=== PATIENT | male | born 1975 | race Caucasian/White ===

== ENCOUNTER 2021-08-03 06:17 | Day surgery (SDC) | payer BC ==
[~2021-08-03] VITALS: Ht 175.3 cm; Wt 99.9 kg
[2021-08-03 06:54] VITALS: BP 150/84
[2021-08-03] MEDS ORDERED: LIDOCAINE/PF 1%, 30ML ONE (06:54)
[2021-08-03] MEDS ORDERED: EPINEPHRINE TOPICAL SOLN 1 MG/ML, 30ML ONE (06:54)
[2021-08-03] MEDS ORDERED: FLUORESCEIN SODIUM 500 MG/5 ML ONE (06:55)
[2021-08-03] MEDS ORDERED: BACITRACIN OINT 500U/GM, 15 GM ONE (06:55)
[2021-08-03] MEDS ORDERED: EPINEPHRINE 1 MG/ML, 1ML ONE (06:55)
[2021-08-03] MEDS ORDERED: OXYMETAZOLINE NASAL SPRAY 0.05%,30ML ONE (06:55)
[2021-08-03] MEDS ORDERED: LACTATED RINGERS 1,000 ML IV SCH (07:00)
[2021-08-03] MEDS ORDERED: CHLORHEXIDINE 15 ML UDC PO ONE (07:00)
[2021-08-03] MEDS ORDERED: GLUC1TAB21 PO (07:12)
[2021-08-03] MEDS ORDERED: MULT-826 PO (07:12)
[2021-08-03] MEDS ORDERED: FENTANYL PF 250 MCG/5ML ONE (08:06)
[2021-08-03] MEDS ORDERED: MIDAZOLAM 1 MG/ML, 2ML ONE (08:06)
[2021-08-03] MEDS ORDERED: ROCURONIUM 10 MG/ML,10ML ONE (09:03)
[2021-08-03] MEDS ORDERED: SUGAMMADEX 200 MG/2 ML IVPush ONE (09:03)
[2021-08-03] MEDS ORDERED: DEXAMETHASONE 4 MG/ML, 1ML ONE (09:03)
[2021-08-03] MEDS ORDERED: PROPOFOL 10 MG/ML, 20ML ONE (09:03)
[2021-08-03] MEDS ORDERED: ONDANSETRON 2MG/ML, 2ML ONE (09:03)
[2021-08-03] MEDS ORDERED: CEFAZOLIN 1,000 MG ONE (09:03)
[2021-08-03] MEDS ORDERED: SUCCINYLCHOLINE 20 MG/ML, 10ML ONE (09:03)
[2021-08-03] MEDS ORDERED: OXYcodone 5 MG/5 ML ORAL.SOL UDC PO PRN (10:30)
[2021-08-03] MEDS ORDERED: ALBUTEROL SULFATE 2.5 MG/3 ML NPPB PRN (10:30)
[2021-08-03] MEDS ORDERED: ONDANSETRON 2MG/ML, 2ML IVPush PRN (10:30)
[2021-08-03] MEDS ORDERED: METOCLOPRAMIDE 5 MG/ML, 2ML IV PRN (10:30)
[2021-08-03] MEDS ORDERED: FENTANYL PF 100 MCG/2ML IV PRN (10:30)
[2021-08-03] MEDS ORDERED: LABETALOL 5MG/ML, 20ML IV PRN (10:30)
[2021-08-03] MEDS ORDERED: DIAZEPAM 5 MG/ML, 2ML IV PRN ×2 (10:30)
[2021-08-03] MEDS ORDERED: HYDROmorphone 1 MG/ML, 1ML INJ IV PRN (10:30)
[2021-08-03] MEDS ORDERED: MEPERIDINE/PF 25MG/0.5ML IVPush PRN (10:30)
[2021-08-03] MEDS ORDERED: PROMETHAZINE 25 MG/ML, 1ML IV PRN (10:30)
[2021-08-03] MEDS ORDERED: hydrALAzine 20 MG/ML, 1ML IV PRN (10:30)
[2021-08-03] MEDS ORDERED: KETOROLAC 30 MG/1 ML IV PRN (10:30)
[2021-08-03] MEDS ORDERED: ACETAMINOPHEN 650 MG/20.3 ML UDC PO PRN (11:00)
== END 2021-08-03 11:40 | disposition home or self-care (01) ==
LOC: OUT 06:17
PROVIDERS: ATTEND Otolaryngology
DX: J34.2 Deviated nasal septum (principal); J34.3 Hypertrophy of nasal turbinates; J34.89 Other specified disorders of nose and nasal sinuses; J32.9 Chronic sinusitis, unspecified
CPT/HCPCS: 30140; 30520; J0171; J2250; J3010; J7120; J0690; J1100; J2405; J2704; J0330